=== PATIENT | male | born 1990 | race Two or more races ===

== ENCOUNTER 2024-05-02 10:55 | Emergency (ER) | payer OTHER ==
[~2024-05-02] VITALS: Ht 157.5 cm; Wt 52.2 kg
[~2024-05-02 10:55] MED LIST: LANTUS SQ; ONDA-243 PO
[2024-05-02] MEDS: normal saline 1000ml 1,000 ML IV ONE (11:16)
[2024-05-02] MEDS ORDERED: ketorolac tromethamine 15mg/ml inj. IV ONE (11:30)
[2024-05-02 11:33] LABS: BASOPHILS % (AUTO) 0.4 % (0-1); EOSINOPHILS % (AUTO) 0 % (0-6); HEMATOCRIT 42.5 % (42.0-52.0); HEMOGLOBIN 14.5 g/dl (14.0-17.9); LYMPHOCYTES # (AUTO) 1.3 X10'3 (1.1-4.8); LYMPHOCYTES % (AUTO) 21.1 % (21-51); MEAN CORPUSCULAR HEMOGLOBIN 30.8 PG (27.0-31.0); MEAN CORPUSCULAR VOLUME 90.6 FL (78-98); MEAN PLATELET VOLUME 7.8 FL (7.4-10.4); MONOCYTES # (AUTO) 0.5 X10'3 (0-0.9); MONOCYTES % (AUTO) 8.6 % (2-12); NEUTROPHILS # (AUTO) 4.4 X10'3 (1.8-7.7); NEUTROPHILS % (AUTO) 69.9 % (42-75); PLATELET COUNT 222 X10'3 (140-440); RED CELL DISTRIBUTION WIDTH 13.3 % (11.5-14.5); WHITE BLOOD COUNT 6.3 X10'3 (4.5-11.0)
[2024-05-02] MEDS: ondansetron/PF 4mg/2ml inj IV ONE (12:45)
[2024-05-02] MEDS: ketorolac trometh. 30mg/ml inj. IV ONE (12:46)
[2024-05-02] MEDS: morphine 4 MG/ML inj SYRINge IV ONE (12:46)
[2024-05-02] MEDS ORDERED: iohexol 300mg/ml 100ml inj. ONE (14:02)
[2024-05-02 14:32] LABS: BILIRUBIN,URINE NEGATIVE (Neg); CLARITY,URINE CLEAR (Clear); COLOR,URINE STRAW (Yellow); GLUCOSE, URINE >=1000 mg/dl (Neg); KETONES,URINE >=80 mg/dl (Neg); LEUKOCYTE ESTERASE ,URINE NEGATIVE (Neg); NITRITES, URINE NEGATIVE (Neg); OCCULT BLOOD,URINE TRACE-INTACT (Neg); PROTEIN,URINE NEGATIVE (Neg); UROBILINOGEN,URINE 0.2 E.U/dL (0.2-1.0)
[2024-05-02 14:38] LABS: UA COLLECTION TYPE VOIDED
[2024-05-02 14:40] LABS: BACTERIA,URINE FEW /HPF (Neg); RBC,URINE 0-2 /HPF (0-2); SQUAMOUS EPITHELIAL CELL,UR FEW /LPF (FEW)
[2024-05-02] MEDS ORDERED: ONDA-243 PO (14:57)
[2024-05-02] MEDS ORDERED: PRED20TA PO (14:58)
[2024-05-02] MEDS: predniSONE 20 mg tablet PO ONE (15:17)
[2024-05-02] MEDS: haloperidol lactate 5mg/ml inj IM ONE (15:30)
[2024-05-02] MEDS: diphenhydrAMINE 50 mg/ml inj IV ONE (15:30)
[2024-05-02] MEDS: HYDROcodone/acetaminophen 5mg/325mg tablet PO ONE (16:09)
[2024-05-02 16:37] VITALS: BP 149/105; PULSE 102; RESP 14; TEMP 98.5; O2SAT 99
[2024-05-02 16:39] LABS: URINE AMPHETAMINE SCREEN NEGATIVE (Neg); URINE BARBITUATE SCREEN NEGATIVE (Neg); URINE BENZODIAZEPINES SCREEN NEGATIVE (Neg); URINE CANNABINOID SCREEN NEGATIVE (Neg); URINE COCAINE SCREEN NEGATIVE (Neg); URINE METHADONE SCREEN NEGATIVE (Neg); URINE OPIATE SCREEN NEGATIVE (Neg); URINE PHENCYCLIDINE SCREEN NEGATIVE (Neg)
[2024-05-02 19:00] LABS: ALBUMIN 4.2 G/DL (3.4-5.0); BILIRUBIN,TOTAL 1.16 MG/DL (0.1-1.0); CALCIUM 9.2 MG/DL (8.5-10.1); CREATININE 1.02 MG/DL (0.8-1.3); POTASSIUM 3.7 MMOL/L (3.3-5.1); TOTAL PROTEIN 7.8 G/DL (6.4-8.2)
== END 2024-05-02 16:38 | disposition home or self-care (01) ==
LOC: ER 10:58
DX: K52.89 Other specified noninfective gastroenteritis and colitis (principal); R11.2 Nausea with vomiting, unspecified
CPT/HCPCS: 36415; 74177; 80305; 81001; 82948; 83605; 85025; 87088; 96361; 96372; 96374; 96375; 99285; J1200; J1630; J1885; J2270; J2405; J7030; J7512; Q9967